=== PATIENT | female | born 1955 | race Caucasian/White ===

== ENCOUNTER 2018-02-22 06:01 | Emergency (ER) | payer MEDICAID ==
[~2018-02-22] VITALS: Ht 157.5 cm; Wt 67.1 kg
[2018-02-22 07:24] LABS: CHLORIDE 105 mEq/L (98-107)
[2018-02-22 07:29] LABS: PROTHROMBIN TIME 10.3 sec (9.4-11.6)
[2018-02-22 07:38] LABS: BASOPHILS % 0.8 % (0.0-2.0); EOSINOPHILS % 1.7 % (0.0-5.0); HEMOGLOBIN. 11.4 g/dL (12.0-16.0); LYMPHOCYTES % 19.6 % (20.0-50.0); MEAN CORPUSCULAR HEMOGLOBIN 29.3 pg (28.0-32.0); MEAN CORPUSCULAR VOLUME 84.7 fL (81.0-99.0); MEAN PLATELET VOLUME 8.8 fl (7.4-10.4); MONOCYTES % 6.1 % (2.0-8.0); NEUTROPHILS % 71.8 % (40.0-76.0); PLATELET 230 x1000/uL (130-400)
[2018-02-22] MEDS ORDERED: LORAZEPAM 2MG/ML CPJ IV ONE (09:15)
[2018-02-22] MEDS ORDERED: SODIUM CHLORIDE 0.9% 1,000 ML IV ONE (09:15)
[2018-02-22 10:17] VITALS: BP 131/71
== END 2018-02-22 10:18 | disposition home or self-care (01) ==
LOC: ER 06:01
DX: R07.89 Other chest pain (principal); E11.65 Type 2 diabetes mellitus with hyperglycemia; E86.0 Dehydration; F43.8 Other reactions to severe stress; F41.9 Anxiety disorder, unspecified; R79.89 Other specified abnormal findings of blood chemistry
CPT/HCPCS: 36415; 71045; 80053; 82962; 83880; 84484; 85025; 85610; 93005; 99285; J7030

== ENCOUNTER 2019-09-02 09:24 | Emergency (ER) | payer MEDICAID ==
[~2019-09-02] VITALS: Ht 157.5 cm; Wt 70.0 kg
[2019-09-02 10:13] VITALS: BP 161/59
[2019-09-02] MEDS ORDERED: MORPHINE SULFATE 4 MG/ML CPJ (NOT FOR IM USE) IV ONE (10:30)
== END 2019-09-02 11:33 | disposition home or self-care (01) ==
LOC: ER 10:19
DX: S20.20XA Contusion of thorax, unspecified, initial encounter (principal); E11.9 Type 2 diabetes mellitus without complications; W18.2XXA Fall in (into) shower or empty bathtub, initial encounter; Y93.E1 Activity, personal bathing and showering; Y92.012 Bathroom of single-family (private) house as the place of occurrence of the external cause
CPT/HCPCS: 71101; 96374; 99283; J2270; Z7610

== ENCOUNTER 2022-02-09 06:19 | Emergency (ER) | payer MEDICAID ==
[~2022-02-09] VITALS: Ht 165.1 cm; Wt 68.0 kg
[2022-02-09] MEDS ORDERED: METOCLOPRAMIDE HCL 10MG TABLET PO ONE (07:30)
[2022-02-09] MEDS ORDERED: KETOROLAC 60MG/2ML VIAL IM ONE (07:30)
[2022-02-09] MEDS ORDERED: ACETAMINOPHEN WITH CODEINE 300/30MG TABLET PO ONE (09:00)
[2022-02-09] MEDS ORDERED: TOPUD PO (09:37)
[2022-02-09 10:29] VITALS: BP 178/77
== END 2022-02-09 10:38 | disposition home or self-care (01) ==
LOC: ER 06:19
DX: S00.83XA Contusion of other part of head, initial encounter (principal); M54.59 Other low back pain; M25.551 Pain in right hip; E11.9 Type 2 diabetes mellitus without complications; W01.0XXA Fall on same level from slipping, tripping and stumbling without subsequent striking against object, initial encounter; Y93.89 Activity, other specified; Y92.89 Other specified places as the place of occurrence of the external cause
CPT/HCPCS: 70450; 73502; 93005; 96372; 99285; J1885; J8597

== ENCOUNTER 2022-03-03 07:28 | Emergency (ER) | payer MEDICAID ==
[~2022-03-03] VITALS: Ht 157.5 cm; Wt 65.0 kg
[~2022-03-03 07:28] MED LIST: TOPUD PO
[2022-03-03] MEDS ORDERED: FAMOTIDINE 20MG TABLET PO ONE (08:15)
[2022-03-03] MEDS ORDERED: ONDANSETRON HCL 4MG TABLET PO ONE (08:15)
[2022-03-03] MEDS ORDERED: MAGNESIUM/ALUMINUM HYDROXIDE/SIMETHICONE 30ML UDC PO ONE (08:15)
[2022-03-03 08:53] LABS: BASOPHILS % 0.7 % (0.0-2.0); EOSINOPHILS % 0.6 % (0.0-5.0); HEMATOCRIT. 33.6 % (36.0-48.0); HEMOGLOBIN. 11.2 g/dL (12.0-16.0); LYMPHOCYTES % 13.6 % (20.0-50.0); MEAN CORPUSCULAR HEMOGLOBIN 28.7 pg (28.0-32.0); MEAN PLATELET VOLUME 7.4 fl (7.4-10.4); MONOCYTES % 3.4 % (2.0-8.0); NEUTROPHILS % 81.7 % (40.0-76.0); PLATELET 347 x1000/uL (130-400); RED CELL DISTRIBUTION WIDTH 13.5 % (11.6-14.6)
[2022-03-03 09:01] LABS: CHLORIDE 105 mEq/L (98-107)
[2022-03-03 09:10] LABS: CLARITY URINE TURBID (CLEAR); COLOR URINE YELLOW (YELLOW); KETONES URINE NEGATIVE (NEGATIVE); LEUKOCYTE ESTERASE URINE 3+ (NEGATIVE); NITRITE URINE NEGATIVE (NEGATIVE); OCCULT BLOOD URINE 1+ (NEGATIVE); PROTEIN URINE 2+ (NEGATIVE); SPECIFIC GRAVITY URINE 1.008 (1.005-1.030); UROBILINOGEN URINE 0.2 E.U./dL (0.2-1.0)
[2022-03-03] MEDS ORDERED: SODIUM CHLORIDE 0.9% 1,000 ML IV ONE (09:15)
[2022-03-03] MEDS ORDERED: CEFTRIAXONE 1 G PREMIX 50 ML IV ONE (09:15)
[2022-03-03] MEDS ORDERED: CEFP200T13 MT (10:56)
[2022-03-03] MEDS ORDERED: BLOO-1465 MT (10:57)
[2022-03-03] MEDS ORDERED: LANC-934 TP (10:57)
[2022-03-03 11:14] VITALS: BP 126/75
== END 2022-03-03 11:15 | disposition home or self-care (01) ==
LOC: ER 07:28
DX: N39.0 Urinary tract infection, site not specified (principal); E11.65 Type 2 diabetes mellitus with hyperglycemia
CPT/HCPCS: 36415; 70450; 71045; 80053; 81003; 83690; 83880; 84484; 85025; 87077; 87086; 87186; 96365; 99285; J0696; J7030; Q0162

== ENCOUNTER 2023-06-28 10:16 | Inpatient (IN) | payer OTHER ==
[~2023-06-28] VITALS: Ht 160 cm; Wt 69.9 kg
[~2023-06-28 10:16] MED LIST changes: +BLOO-1465 MT; +CEFP200T13 MT; +LANC-934 TP; +ONDA4TAB50 MT
[2023-06-28 10:57] LABS: BASOPHILS % 1.3 % (0.0-2.0); EOSINOPHILS % 1.3 % (0.0-5.0); HEMATOCRIT. 31.2 % (36.0-48.0); HEMOGLOBIN. 10.1 g/dL (12.0-16.0); LYMPHOCYTES % 23.2 % (20.0-50.0); MEAN CORPUSCULAR HEMOGLOBIN 28.2 pg (28.0-32.0); MEAN CORPUSCULAR HGB CONC 32.5 g/dL (31.0-37.0); MEAN CORPUSCULAR VOLUME 86.8 fL (81.0-99.0); MEAN PLATELET VOLUME 7.5 fl (7.4-10.4); MONOCYTES % 4.1 % (2.0-8.0); NEUTROPHILS % 70.1 % (40.0-76.0); PLATELET 327 x1000/uL (130-400); RED BLOOD CELL COUNT 3.59 mill/uL (4.2-5.4); RED CELL DISTRIBUTION WIDTH 14.1 % (11.6-14.6); WHITE BLOOD COUNT 6.1 x1000/uL (4.5-11.0)
[2023-06-28 11:03] LABS: CHLORIDE 110 mEq/L (98-107); INDEX HEMOLYSI 1 (1-3); INDEX ICTERIC 1 (1-4); INDEX LIPEMIC 1 (1-3); POTASSIUM 4.5 mEq/L (3.5-5.1); SODIUM 135 mEq/L (136-145)
[2023-06-28 11:10] LABS: ALANINE AMINOTRANSFERASE 21 IU/L (13-61); ALBUMIN 3.3 g/dL (3.4-5.0); ASPARTATE AMINOTRANSFERASE 18 IU/L (15-37); BILIRUBIN TOTAL 0.2 mg/dL (0.1-1.0); CARBON DIOXIDE 20 mEq/L (21-32); CREATININE 1.4 mg/dL (0.6-1.3); GLUCOSE 202 mg/dL (70-105); PROTEIN TOTAL 7.6 g/dL (6.0-8.3); UREA NITROGEN BLOOD 37 mg/dL (7-21)
[2023-06-28] MEDS ORDERED: KETOROLAC 30MG/ML VIAL IV STA (11:34)
[2023-06-28] MEDS ORDERED: SODIUM CHLORIDE 0.9% 1,000 ML IV ONE (11:45)
[2023-06-28] MEDS ORDERED: METOCLOPRAMIDE HCL 10MG/2ML VIAL IV ONE (11:45)
[2023-06-28 12:11] LABS: CHLORIDE 110 mEq/L (98-107); INDEX HEMOLYSI 2 (1-3); INDEX ICTERIC 1 (1-4); INDEX LIPEMIC 1 (1-3); POTASSIUM 4.6 mEq/L (3.5-5.1); SODIUM 135 mEq/L (136-145)
[2023-06-28 12:18] LABS: ALANINE AMINOTRANSFERASE 22 IU/L (13-61); ALBUMIN 3.3 g/dL (3.4-5.0); ASPARTATE AMINOTRANSFERASE 19 IU/L (15-37); BILIRUBIN TOTAL 0.3 mg/dL (0.1-1.0); CALCIUM 9.1 mg/dL (8.5-10.1); CARBON DIOXIDE 18 mEq/L (21-32); CREATININE 1.4 mg/dL (0.6-1.3); GLUCOSE 198 mg/dL (70-105); PROTEIN TOTAL 7.6 g/dL (6.0-8.3); TROPONIN I HIGH SENSITIVITY 6 ng/L (<54); UREA NITROGEN BLOOD 38 mg/dL (7-21)
[2023-06-28 12:36] LABS: INR 0.9; PROTHROMBIN TIME 10.2 sec (9.6-11.0)
[2023-06-28] MEDS ORDERED: TETRACAINE 0.5% OPHTH DROPS 4ML LEFTEYE ONE (13:00)
[2023-06-28] MEDS ORDERED: FLUORESCEIN SODIUM 1MG/STRIP LEFTEYE ONE (13:00)
[2023-06-28 13:39] LABS: CLARITY URINE HAZY (CLEAR); COLOR URINE YELLOW (YELLOW); GLUCOSE URINE NEGATIVE (NEGATIVE); KETONES URINE NEGATIVE (NEGATIVE); OCCULT BLOOD URINE TRACE (NEGATIVE); PH URINE 5.5 (4.5-8.0); PROTEIN URINE 2+ (NEGATIVE); SPECIFIC GRAVITY URINE 1.025 (1.005-1.030)
[2023-06-28 13:40] LABS: LEUKOCYTE ESTERASE URINE 1+ (NEGATIVE); NITRITE URINE NEGATIVE (NEGATIVE); UROBILINOGEN URINE 0.2 E.U./dL (0.2-1.0)
[2023-06-28 13:42] LABS: SQUAMOUS EPITHELIAL CELL URINE 1+ /lpf (RARE/1+); WBC URINE 25-50 /hpf (0-2)
[2023-06-28 13:43] LABS: BACTERIA URINE 1+; YEAST URINE NONE SEEN
[2023-06-28 21:00] VITALS: BP 183/91; PULSE 80; RESP 21; TEMP 98.8
[2023-06-28] MEDS ORDERED: ONDANSETRON HCL 4MG/2ML INJ IV PRN (21:45)
[2023-06-28] MEDS ORDERED: PANTOPRAZOLE 40MG DR TABLET PO SCH (21:45)
[2023-06-28] MEDS ORDERED: HYDROCODONE/ACETAMINOPHEN 5/325MG TABLET PO PRN (21:45)
[2023-06-28] MEDS ORDERED: CLONIDINE 0.1MG TABLET PO PRN (21:45)
[2023-06-28 22:00] VITALS: BP 183/91; PULSE 80; RESP 21; TEMP 98.8
[2023-06-28] MEDS: ASPIRIN 81MG TABLET PO SCH (22:36)
[2023-06-28] MEDS: AMLODIPINE 10MG TABLET PO SCH (22:36)
[2023-06-28] MEDS: LOSARTAN POTASSIUM 50 MG TABLET PO SCH (22:37)
[2023-06-28] MEDS ORDERED: DEXTROSE 50% WATER 50ML SYRINGE IV PRN (23:00)
[2023-06-29] VITALS (10 sets, daily range): BP systolic 63–146; BP diastolic 33–73; PULSE 63–90; RESP 16–20; TEMP 98–99.5
[2023-06-29 00:44] LABS: BASOPHILS % 1.3 % (0.0-2.0); EOSINOPHILS % 3.8 % (0.0-5.0); HEMATOCRIT. 29.3 % (36.0-48.0); HEMOGLOBIN. 9.7 g/dL (12.0-16.0); LYMPHOCYTES % 26.8 % (20.0-50.0); MEAN CORPUSCULAR HEMOGLOBIN 28.4 pg (28.0-32.0); MEAN CORPUSCULAR HGB CONC 33.3 g/dL (31.0-37.0); MEAN CORPUSCULAR VOLUME 85.2 fL (81.0-99.0); MEAN PLATELET VOLUME 7.7 fl (7.4-10.4); MONOCYTES % 7.3 % (2.0-8.0); NEUTROPHILS % 60.8 % (40.0-76.0); PLATELET 304 x1000/uL (130-400); RED BLOOD CELL COUNT 3.43 mill/uL (4.2-5.4); RED CELL DISTRIBUTION WIDTH 13.7 % (11.6-14.6); WHITE BLOOD COUNT 5.4 x1000/uL (4.5-11.0)
[2023-06-29 01:26] LABS: POTASSIUM 4.1 mEq/L (3.5-5.1)
[2023-06-29 01:37] LABS: CALCIUM 8.2 mg/dL (8.5-10.1); CREATININE 1.2 mg/dL (0.6-1.3)
[2023-06-29] MEDS: BLOOD SUGAR DIAGNOSTIC STRIP TEST SCH ×4 (06:37→21:00)
[2023-06-29] MEDS: INSULIN LISPRO 100 UNITS/ML SUBCUT SCH ×4 (07:50→21:37)
[2023-06-29] MEDS: LOSARTAN POTASSIUM 50 MG TABLET PO SCH (10:00)
[2023-06-29] MEDS: ASPIRIN 81MG TABLET PO SCH (10:00)
[2023-06-29] MEDS: AMLODIPINE 10MG TABLET PO SCH (10:00)
[2023-06-29] MEDS: CEFTRIAXONE 1,000 MG in DEXTROSE 5% WATER 50 ML IV SCH (12:02)
[2023-06-29] MEDS ORDERED: MECLIZINE 25MG TABLET PO PRN (12:30)
[2023-06-29] MEDS: MIDODRINE HCL 5MG TABLET PO SCH ×2 (15:00→18:09)
[2023-06-29] MEDS ORDERED: NALOXONE HCL 0.4MG/ML VIAL IV PRN (16:30)
[2023-06-29] MEDS ORDERED: ACETAMINOPHEN 650MG/20.3ML UDC PO PRN (18:15)
[2023-06-29] MEDS ORDERED: FAMOTIDINE 20MG TABLET PO SCH (21:00)
[2023-06-30] VITALS: BP 118/60; PULSE 84; RESP 17; TEMP 97
[2023-06-30 04:00] VITALS: BP 130/66; PULSE 80; RESP 18; TEMP 97.9
[2023-06-30] MEDS: BLOOD SUGAR DIAGNOSTIC STRIP TEST SCH ×2 (06:45→12:22)
[2023-06-30] MEDS: INSULIN LISPRO 100 UNITS/ML SUBCUT SCH ×2 (07:50→13:20)
[2023-06-30 08:00] VITALS: BP 141/72; PULSE 81; RESP 19; TEMP 98.6
[2023-06-30] MEDS: MIDODRINE HCL 5MG TABLET PO SCH ×2 (09:00→13:00)
[2023-06-30] MEDS: ASPIRIN 81MG TABLET PO SCH (10:42)
[2023-06-30] MEDS: CEFTRIAXONE 1,000 MG in DEXTROSE 5% WATER 50 ML IV SCH (10:59)
[2023-06-30 12:00] VITALS: BP 134/63; PULSE 82; RESP 19; TEMP 98.8
[2023-06-30 12:52] VITALS: BP 134/63; PULSE 82; TEMP 98.6; O2SAT 98
== END 2023-06-30 14:47 | disposition home or self-care (01) | DRG 82 ==
LOC: ER 14:46 → 6EST 20:42
PROVIDERS: ADMIT Internal Medicine; ATTEND Internal Medicine
DX: H57.12 Ocular pain, left eye (principal); N17.0 Acute kidney failure with tubular necrosis; E44.1 Mild protein-calorie malnutrition; E87.1 Hypo-osmolality and hyponatremia; E11.9 Type 2 diabetes mellitus without complications; E78.5 Hyperlipidemia, unspecified; D64.9 Anemia, unspecified; N39.0 Urinary tract infection, site not specified; N32.89 Other specified disorders of bladder; R51.9 Headache, unspecified; I10 Essential (primary) hypertension; Z68.27 Body mass index [BMI] 27.0-27.9, adult
CPT/HCPCS: 36415; 70544; 70553; 71045; 74176; 80048; 80053; 80061; 81003; 82962; 83036; 84484; 85025; 93005; 99285; J0696; J1815; J1885; J2405; J2765; J7030; J7060; J8597